=== PATIENT | female | born 1980 | race Caucasian/White ===

== ENCOUNTER 2017-06-21 06:38 | Day surgery (SDC) | payer MEDICAID ==
[2017-06-21] MEDS ORDERED: Sodium Tetradecyl Sulfate 1% 20 MG/2 ML SDV ONE (06:42)
[2017-06-21] MEDS ORDERED: Sodium Chloride 0.9% 10 ML ONE (06:42)
[2017-06-21] MEDS ORDERED: Lidocaine 1% with EPINEPHrine 1:100,000 50 ML MDV ONE (06:42)
[2017-06-21] MEDS ORDERED: Sodium Chloride 0.9% 1,000 ML IV SCH (07:30)
[2017-06-21] MEDS ORDERED: fentaNYL 100 MCG/2 ML SDV ONE ×2 (07:36→08:07)
[2017-06-21] MEDS ORDERED: Midazolam 1 MG/ML 2 ML SDV ONE (07:36)
[2017-06-21] MEDS ORDERED: Propofol 200 MG/20 ML SDV ONE ×4 (07:36→08:51)
[2017-06-21] MEDS ORDERED: Ketamine 500 MG/5 ML MDV ONE (07:36)
[2017-06-21] MEDS: Lidocaine 1% w/EPINEPHrine 50 ML, Sodium Bicarbonate 5 MEQ in Sodium Chloride 0.9% 950 ML INJECT SCH ×2 (08:08→08:09)
[2017-06-21 10:22] VITALS: BP 136/75
--- NOTE | 2017-06-21 13:41 | OR ---
DATE OF PROCEDURE: 06/21/2017 PROCEDURES: 1. Radiofrequency ablation of left greater saphenous vein. 2. Radiofrequency ablation of right greater saphenous vein. 3. Sclerotherapy of left leg, multiple. 4. Sclerotherapy of right leg, multiple. 5. CoFlex wrapping (96561), left leg. 6. CoFlex wrapping (75596), right leg. COMPLICATIONS: None. METAL DRILL PRESS OPERATOR: None. ANESTHESIA: MAC/local. PREOPERATIVE DIAGNOSIS: Venous/varicose vein insufficiency with inflammation and pain. POSTOPERATIVE DIAGNOSIS: Venous/varicose vein insufficiency with inflammation and pain. RISKS: Risks, benefits, alternatives, and limitations including, but not limited to infection, bleeding, and DVT were explained to the patient who wished to proceed. PROCEDURE IN DETAIL: The patient was placed in supine position. The left GSV was addressed first. Due to tortuosity, this was accessed at the level of the proximal calf. This was accessed by using a 21-gauge needle, then exchanged for a 35,000th wire, and then exchanged for a 7-Macedonian sheath. This was advanced to 3 cm from the saphenofemoral junction. This would be verified a second time prior to RFA energy application. Tumescent fluid was injected in 1 cm jacket around this and was verified a second and a third time. Direct even pressure was applied as the probe was deployed x2 proximally and distally, and x1 in all other segments. The sheath and device were then removed. Direct pressure was held for 10 minutes and Dermabond was applied. The right leg was then performed in the same manner, same fashion, same technique, in the same sequence, and using the same equipment. Sclerotherapy was then performed of left and right legs using 0.33% sodium tetradecyl, this was always drawn back to ensure intravascular injection only and no more than 2 mL was injected in one location. There were 8 on the right and 4 on the left. Two-stage CoFlex wrapping was then performed in a [id number] fashion all the way to the groin. This was performed by using a foam layer first followed by CoFlex two figure-of- eights. Robert Servin MD /[id number]
== END 2017-06-21 10:23 | disposition home or self-care (01) ==
LOC: JP.SDS 06:38
PROVIDERS: ATTEND Surgery
DX: I87.2 Venous insufficiency (chronic) (peripheral) (principal); I83.813 Varicose veins of bilateral lower extremities with pain; I83.11 Varicose veins of right lower extremity with inflammation; I83.12 Varicose veins of left lower extremity with inflammation; Z88.1 Allergy status to other antibiotic agents; Z88.2 Allergy status to sulfonamides
CPT/HCPCS: 29581; 36415; 36471; 36475; 80048; 84703; 85027; J1642; J2250; J2704; J3010; J7040; J7050; J3490

== ENCOUNTER 2019-05-05 08:57 | Day surgery (SDC) | payer MEDICAID ==
[~2019-05-05 08:57] MED LIST: Bupivacaine 0.5% 50 ML MDV ONE; Dexamethasone 4 MG/ML SDV ONE; Glycopyrrolate 0.2 MG/ML 5 ML MDV ONE; Neostigmine Methylsulfate 1 MG/ML 5 ML Syringe ONE; Ondansetron 4 MG/2 ML SDV ONE; Propofol 200 MG/20 ML SDV ONE; Rocuronium 50 MG/5 ML Vial ONE; fentaNYL 250 MCG/5 ML SDV ONE
[2019-05-05] MEDS ORDERED: Lactated Ringers 1,000 ML IV SCH (09:30)
[2019-05-05] MEDS ORDERED: Nozin Nasal Sanitizer NASBOTH ONE (09:30)
[2019-05-05] MEDS ORDERED: ceFAZolin 2 GM in Premix Bag 1 BAG IV ONE (11:30)
[2019-05-05] MEDS ORDERED: Lactated Ringers 1,000 ML ONE (11:57)
[2019-05-05] MEDS ORDERED: Ketorolac 60 MG/2 ML SDV IM ONE (13:35)
[2019-05-05] MEDS ORDERED: Acetaminophen/oxyCODONE 325-5 MG Tab PO PRN (13:36)
[2019-05-05 14:20] VITALS: BP 101/73; PULSE 61
--- NOTE | 2019-05-09 15:01 | OR ---
DATE OF PROCEDURE: 05/05/2019 SURGEON: Jacoby Norwood MD PREOPERATIVE DIAGNOSES: 1. Chondromalacia patella, left knee. 2. Patellar malalignment, left knee with anterior knee pain. POSTOPERATIVE DIAGNOSES: 1. Chondromalacia patella, left knee. Grade 3 chondromalacia of the patella. 2. Patellar malalignment, left knee with anterior knee pain. PROCEDURES: 1. Arthroscopy of left knee with chondroplasty of patella and arthroscopic lateral release. 2. Open medial reefing with advancement of VMO. ANESTHESIA: General. INDICATIONS: Monisha is a 39-year-old female with a history of progressive pain in the anterior aspect of both knees, left knee in particular. She has been experiencing significant crunching, grinding, and giving way. Examination and imaging are consistent with lateral patellar malalignment and chondromalacia of patella. She now presents for arthroscopic evaluation of the joint with chondroplasty and lateral release. She is aware that this may not be sufficient to correct her malalignment and patellar tracking issues and that a Tere procedure may be indicated. Risks, benefits, potential complications of arthroscopic procedure, Tere procedure, and patellofemoral arthroplasty were discussed. PROCEDURE IN DETAIL: After adequate anesthesia was obtained, the patient was placed supine with a tourniquet about the left upper thigh. Left leg was prepped and draped in a sterile fashion. Leg was exsanguinated and tourniquet inflated to 300 mmHg pressure. Standard inferior medial and lateral portals were established. Scope was introduced. Patellofemoral joint was inspected. This revealed significant fraying and loose articular flaps of the patella, primarily over the dome and lateral facet, but encroaching onto the medial facet as well. Trochlear notch showed relatively preserved articular cartilage with some mild softening and early fissuring, but no significant damage. Shaver was used to perform a chondroplasty removing all loose articular flaps. Remainder of the knee was inspected and it showed intact meniscus medially and laterally with no articular cartilage defects or damage in the medial compartment or lateral compartment. Attention was returned to the patellofemoral joint. Knee was taken through range of motion with the fluid removed and this did show lateral overhang and tracking. Lateral release was then performed under direct visualization with a hooked ablation wand. After this was complete, knee was again taken through range of motion and the patella tracking visualized. This continued to show some lateral tracking, particularly in extension. Decision was made to see if this small amount of residual lateralization could be corrected with the medial reefing rather than a Tere procedure. Scope was withdrawn. A small incision was made over the medial aspect of the patella. Deeper incision was made along the attachment of the VMO and medial retinaculum. Retinaculum and VMO were then advanced laterally on the patella several millimeters and sutured with the 0 Vicryl. Patella tracking was again visualized and palpated. Patella was noted to sit centrally within the trochlea throughout full range of motion. Additional sutures were then placed in the medial retinaculum over the patella, securing this in position. Skin incisions were then closed with 2-0 Vicryl and a running 3-0 Monocryl. Port sites were closed with 3-0 Monocryl. Steri-Strips were applied. Port sites and medial incision were infiltrated with 0.25% Marcaine. Sterile dressing was then applied with a slight bolster compression over the lateral release. The patient tolerated the procedure well. There were no complications. She was taken from the operating room in stable condition. Jacoby Norwood MD /[id number] DEIDRA
== END 2019-05-05 15:24 | disposition home or self-care (01) ==
LOC: JP.SDS 08:57
PROVIDERS: ATTEND Specialist
DX: M22.42 Chondromalacia patellae, left knee (principal); J45.40 Moderate persistent asthma, uncomplicated; E66.01 Morbid (severe) obesity due to excess calories; G43.909 Migraine, unspecified, not intractable, without status migrainosus; Z88.2 Allergy status to sulfonamides; Z88.0 Allergy status to penicillin; Z68.38 Body mass index [BMI] 38.0-38.9, adult; Z79.51 Long term (current) use of inhaled steroids; Z79.899 Other long term (current) drug therapy
CPT/HCPCS: 27422; 29873; 81025; A9270; J0690; J1100; J1885; J2405; J2704; J2710; J3010; J3490; J7120

== ENCOUNTER 2019-07-28 06:19 | Day surgery (SDC) | payer MEDICAID, OTHER ==
[~2019-07-28 06:19] MED LIST changes: -Bupivacaine 0.5% 50 ML MDV ONE; -Dexamethasone 4 MG/ML SDV ONE; -Glycopyrrolate 0.2 MG/ML 5 ML MDV ONE; +Lactated Ringers 1,000 ML IV SCH; -Neostigmine Methylsulfate 1 MG/ML 5 ML Syringe ONE; +Nozin Nasal Sanitizer NASBOTH ONE; -Ondansetron 4 MG/2 ML SDV ONE; -Propofol 200 MG/20 ML SDV ONE; -Rocuronium 50 MG/5 ML Vial ONE; -fentaNYL 250 MCG/5 ML SDV ONE
[2019-07-28] MEDS ORDERED: methylPREDNISolone Acetate 80 MG/ML SDV ONE (06:43)
[2019-07-28] MEDS ORDERED: Bupivacaine 0.5%/EPINEPHrine 1:200,000 50 ML MDV ONE (06:43)
[2019-07-28] MEDS ORDERED: Bupivacaine 0.25%/EPINEPHrine 1:200,000 30 ML SDV ONE (07:11)
[2019-07-28] MEDS ORDERED: fentaNYL 100 MCG/2 ML SDV ONE (07:22)
[2019-07-28] MEDS ORDERED: Midazolam 1 MG/ML 2 ML SDV ONE (07:22)
[2019-07-28] MEDS ORDERED: Propofol 200 MG/20 ML SDV ONE (07:24)
[2019-07-28] MEDS ORDERED: Bupivacaine 0.25% 10 ML SDV ONE (07:39)
[2019-07-28] MEDS ORDERED: Acetaminophen/HYDROcodone 325-5 MG Tab PO ONE (08:45)
[2019-07-28 09:34] VITALS: BP 94/63; PULSE 61
--- NOTE | 2019-08-06 19:17 | OR ---
DATE OF PROCEDURE: 07/28/2019 SURGEON: Jacoby Norwood MD ANESTHESIA: Conscious sedation. PREOPERATIVE DIAGNOSIS: Arthrofibrosis, left knee. POSTOPERATIVE DIAGNOSIS: Arthrofibrosis, left knee. PROCEDURE: Manipulation under anesthesia, left knee; injection, left knee with 80 mg Depo- Medrol and 10 mg of 0.25% Marcaine. INDICATIONS: Monisha is a 39-year-old female, who has previously undergone arthroscopic lateral release and an open medial retinacular reefing for patellar realignment. She has had difficulty regaining range of motion despite extensive physical therapy. She now presents for manipulation under anesthesia. Risks, benefits, and potential complications of the procedure were discussed. DESCRIPTION OF PROCEDURE: After adequate anesthesia was obtained, the patient was supine and the knee was taken up into a flexed position. Resistance was met at between 90 and 95 degrees. Gentle steady pressure was applied with release of adhesions easily without extensive force. The knee could be flexed to approximately 140 degrees with back of her calf touching the back of her thigh. The knee was then extended fully. It was again taken up into flexion and again 140 degrees of flexion was achieved. Knee was then injected in a superolateral approach. Skin was cleansed with alcohol, and the knee was injected into the suprapatellar pouch with combination of Depo-Medrol and Marcaine. Adhesive dressing was applied. She tolerated the procedure very well. There were no complications. She was taken from the operating room in stable condition. Jacoby Norwood MD /[id number]
== END 2019-07-28 09:40 | disposition home or self-care (01) ==
LOC: JP.SDS 06:19
PROVIDERS: ATTEND Specialist
DX: M24.662 Ankylosis, left knee (principal); E66.9 Obesity, unspecified; Z68.38 Body mass index [BMI] 38.0-38.9, adult; Z88.2 Allergy status to sulfonamides; Z88.0 Allergy status to penicillin
CPT/HCPCS: 20610; 81025; A9270; J1040; J2250; J2704; J3010; J3490; J7120